=== PATIENT | male | born 1960 | race African-American/Black ===

== ENCOUNTER 2025-07-24 00:07 | Emergency (ER) | payer MEDICARE, SELFPAY ==
[2025-07-24 00:34] VITALS: BP 146/91
[2025-07-24 01:10] LABS: Hematocrit 47.4 % (39.0-52.0); Hemoglobin 16.6 g/dL (13.0-18.0); Mean Corp Hgb Conc. 35.0 g/dL (33.0-37.0); Mean Corpuscular Volume 87.9 fL (80.0-94.0); Nucleated Red Blood Cells % 0 % (-); Platelet Count 199 10^3/uL (130-400); Red Cell Dist. Width 12.4 % (11.5-14.5)
[2025-07-24 01:22] LABS: ALT (SGPT) 28 U/L (0-50); AST (SGOT) 24 U/L (17-59); Albumin 4.6 g/dl (3.5-5.0); Alkaline Phosphatase 74 U/L (38-126); Blood Urea Nitrogen 12 mg/dl (9-20); Calcium 9.2 mg/dl (8.4-10.2); Carbon Dioxide 23 mmol/L (22-30); Chloride 102 mmol/L (98-107); Glucose 214 mg/dl (70-99); Lipase 43 U/L (23-300); Potassium 4.4 mmol/L (3.5-5.1); Sodium 136 mmol/L (135-145); Total Protein 8.0 g/dl (6.3-8.2); eGFR > 60.00
[2025-07-24 01:27] LABS: Troponin I < 0.012 ng/ml
--- NOTE | 2025-07-24 03:31 | ED.GENMED ---
History of Present Illness
General
Chief Complaint: Abdominal Pain
Source: patient
Exam Limitations: none
Time Seen by Provider: 07/24/25 03:02
Nursing documentation reviewed up to this point in time: agreed with
History of Present Illness
History of Present Illness:
65-year-old male past medical history of hypertension hyperlipidemia, diabetes, CAD presenting to the emergency department today with concerns of an episode of diarrhea last night and then upper abdominal pain described as cramping lasting roughly
45 minutes a few hours prior to arrival. Asymptomatic on arrival here. Denies any ongoing chest pain shortness of breath any recent fevers upper respiratory symptoms.
Past History
Past History
ED Past Medical History: NIDDM
ED Past Surgical History: None
Social History
Tobacco: Non-smoker
Alcohol: None
Drug: None
Personal:
Living: with family
Employment: Employed
Review of Systems
Review of Systems
Allergies reviewed?: Yes
All Other Systems: ROS reviewed and negative except as documented in HPI and ROS
Phy Exam
Physical Exam
Physical Exam:
GENERAL: Alert , in no apparent distress
EYE: pupils equal and reactive
NECK: Supple, no significant adenopathy.
ENT: o/p clr, mmm.
CARDIAC: Regular rate and rhythm .
LUNGS: Clear breath sounds bilaterally, no acute respiratory distress, no wheezes/rales/rhonchi
ABDOMEN: Soft, without focal tenderness, no r/g, no cvat
NEUROLOGICAL: Alert and oriented, no focal neuro deficits
SKIN: Warm and dry, skin intact.
MUSCULOSKELETAL: No edema, well perfused.
PSYCH: Normal and appropriate interaction.
Course
Orders/Labs/Results
Orders:
Orders
07/24/25 00:38
Electrocardiogram (*1) Urgent
Reason for Study: Abdominal Pain
07/24/25 00:39
EKG- Treatment ONCE
07/24/25 00:55
Complete Blood Count/With Diff Urgent
Comprehensive Metabolic Panel Urgent
Lipase Urgent
Troponin I Urgent
Abnormal Lab Results
07/24/25
00:55
Absolute Monos (auto) 0.8 H 10^3/uL
(0.1-0.6)
Lymphocytes % 17.1 L %
(20.5-51.1)
Glucose 214 H mg/dl
(70-99)
07/24/25 00:55
07/24/25 00:55
Vital Signs
Initial and Last Documented VS:
Initial Vital Signs
Temp Pulse Resp BP Pulse Ox
97.8 F 73 18 146/91 98
07/24/25 00:34 07/24/25 00:34 07/24/25 00:34 07/24/25 00:34 07/24/25 00:34
Last Documented Vital Signs
Temp Pulse Resp BP Pulse Ox
97.8 F 73 18 146/91 98
07/24/25 00:34 07/24/25 00:34 07/24/25 00:34 07/24/25 00:34 07/24/25 00:34
MDM/Problems Addressed
MDM/Problems Addressed:
65-year-old male presenting to the emergency department today with concerns of upper abdominal pain prior to arrival. Now asymptomatic vital signs normal EKG normal troponin negative labs unremarkable. Abdomen is soft patient no distress here. No
signs of emergent pathology stable for discharge. Return precautions given.
*Pulse Oximetry
SaO2: 98
Oxygen Mode of Delivery: Room air
Patient hypoxic: no (98)
*Critical Care Note
Total Time (30-74mins, 75-104mins- exclusive of procedures): Not Applicable
ED Attending Note
-
Portions of this chart may have been created with voice recognition software.� Occasional wrong word or��sound alike� substitutions may have occurred due to the inherent limitations of voice recognition software.
Discharge Plan
Departure
Patient Disposition: Home (Routine Discharge)
Date of Disposition: 07/24/25
Time of Disposition: 03:33
Patient with high blood pressure during this ER visit?: No
Condition: Good
Covid-19: Not Applicable
Discharge Problem:
Acute upper abdominal pain
Instructions: Abdominal Pain
Prescriptions:
No Action
fluticasone propion-salmeterol [Advair Diskus] 250-50 mcg/dose blister with device
1 inh inhalation BID Qty: 60 0RF
benzonatate 100 mg capsule
100 mg PO BID PRN (Reason: Cough) Qty: 20 0RF
albuterol sulfate [ProAir HFA] 90 mcg/actuation HFA aerosol inhaler
2 puff inhalation 6XD PRN (Reason: shortness of breath or wheezing) Qty: 8.5 0RF
Rx Instructions:
Dispense with [facility] thank you
Activity Restrictions/Additional Instructions:
You came to the emergency department today with concerns of upper abdominal pain. Here your reassuring assessment. Please up closely with your primary care doctor. Return for any worsening, new or concerning symptoms.
Interventions
Interventions:
*General Assessment Last Done: 07/24/25 03:30
*Neglect/Abuse Screening Last Done: 07/24/25 03:30
*ED COVID-19 Vaccine History Last Done: 07/24/25 03:30
*ED Influenza Vaccine History Last Done: 07/24/25 03:30
[facility] Risk Assessment Tool Last Done: 07/24/25 00:07
*Risk Screen - Suicide (C-SSRS) Last Done: 07/24/25 00:34
JM-Fxldyp-Lcigjzporl Assessment Last Done: 07/24/25 03:30
Discharge Date and Time
Print Language: AZERI
== END 2025-07-24 03:42 | disposition home or self-care (01) ==
LOC: EMR 00:07
PROVIDERS: EMERGENCY PHYSICIAN Emergency Medicine; FAMILY PHYSICIAN Internal Medicine
DX: R10.10 Upper abdominal pain, unspecified (principal); R19.7 Diarrhea, unspecified; I10 Essential (primary) hypertension; E78.5 Hyperlipidemia, unspecified; E11.9 Type 2 diabetes mellitus without complications; I25.10 Atherosclerotic heart disease of native coronary artery without angina pectoris; Z95.5 Presence of coronary angioplasty implant and graft; Z86.16 Personal history of COVID-19; Z79.84 Long term (current) use of oral hypoglycemic drugs
CPT/HCPCS: 99283; 80053; 83690; 84484; 85025; 93005